=== PATIENT | female | born 1960 | race African-American/Black ===

== ENCOUNTER 2019-01-16 06:17 | Emergency (ER) | payer MEDICAID ==
[~2019-01-16] VITALS: Ht 165.1 cm; Wt 55.0 kg
[2019-01-16 06:21] VITALS: BP 191/109
[2019-01-16] MEDS ORDERED: FLUORESCEIN SODIUM 1MG/STRIP OP ONE (07:15)
[2019-01-16] MEDS ORDERED: TETRACAINE 0.5% OPHTH DROPS 4ML OP ONE (07:15)
== END 2019-01-16 08:54 | disposition home or self-care (01) ==
LOC: ER 06:37
DX: T59.3X3A Toxic effect of lacrimogenic gas, assault, initial encounter (principal); H10.213 Acute toxic conjunctivitis, bilateral; Y92.480 Sidewalk as the place of occurrence of the external cause; I10 Essential (primary) hypertension; F17.210 Nicotine dependence, cigarettes, uncomplicated
CPT/HCPCS: 99283